=== PATIENT | female | born 1960 | race Caucasian/White ===

== ENCOUNTER 2020-10-24 12:22 | Inpatient (IN) | payer MEDICAID ==
[2020-10-17 17:04] LABS: BASOPHILS # (AUTO) 0.1 X10'3 (0-0.2); BASOPHILS % (AUTO) 1.1 % (0-1); EOSINOPHILS # (AUTO) 0.2 X10'3 (0-0.9); EOSINOPHILS % (AUTO) 2.1 % (0-6); LYMPHOCYTES # (AUTO) 2.1 X10'3 (1.1-4.8); LYMPHOCYTES % (AUTO) 27.2 % (21-51); MEAN CORPUSCULAR HEMOGLOBIN 32.4 PG (27.0-31.0); MEAN CORPUSCULAR HGB CONC 34.2 g/dL (33.0-36.5); MEAN CORPUSCULAR VOLUME 94.9 FL (78-98); MEAN PLATELET VOLUME 8.6 FL (7.4-10.4); MONOCYTES # (AUTO) 0.7 X10'3 (0-0.9); MONOCYTES % (AUTO) 8.5 % (2-12); NEUTROPHILS # (AUTO) 4.7 X10'3 (1.8-7.7); NEUTROPHILS % (AUTO) 61.1 % (42-75); PRE OP HEMATOCRIT 44.8 % (35.0-45.0); PRE OP HEMOGLOBIN 15.3 g/dL (12.0-16.0); PRE OP PLATELET COUNT 284 X10'3 (140-440); RED BLOOD COUNT 4.72 X10'6 (4.20-5.60); RED CELL DISTRIBUTION WIDTH 13.3 % (11.5-14.5)
[2020-10-17 17:12] LABS: ALBUMIN 3.9 G/DL (3.4-5.0); ALBUMIN/GLOBULIN RATIO 1.2 (1.1-1.5); ALKALINE PHOSPHATASE 121 IU/L (46-116); BLOOD UREA NITROGEN 14 MG/DL (7-18); BUN/CREATININE RATIO 14.6 (6.6-38.0); CALCIUM 8.7 MG/DL (8.5-10.1); CHLORIDE 108 MMOL/L (99-107); CREATININE 0.96 MG/DL (0.40-0.90); PRE OP ALT 39 U/L (30-65); PRE OP ANION GAP 8 (8-16); PRE OP AST 20 U/L (10-37); PRE OP BILIRUB, TOTAL 0.3 MG/DL (0.0-1.0); PRE OP GLUCOSE 103 MG/DL (70-104); PRE OP POTASSIUM 4.1 MMOL/L (3.4-5.1); PRE OP SODIUM 144 MMOL/L (135-145); TOTAL CARBON DIOXIDE 27.7 MMOL/L (24-32); TOTAL PROTEIN 7.2 G/DL (6.4-8.2); eGFR 59 ML/MIN
[2020-10-24] VITALS (16 sets, daily range): BP systolic 111–149; BP diastolic 66–98
[~2020-10-24] VITALS: Ht 170.2 cm; Wt 96.4 kg
[~2020-10-24 12:22] MED LIST: ATOR40TA72 PO; CAL MAG ZINC; EVOL140P3 SQ; EZET10TA48 PO; LISI-604 PO; OMEP-50 PO; TOLT4CAP14 PO; TOPI25TA49 PO; TURM500C4 PO; clindamycin-Cleocin 900mg/D5W 50 ML IV ONE; famotidine 20mg tablet PO ONE; ringers solution, lacted 1,000 ML IV SCH; tranexamic acid 650mg tablet PO ONE; vancomycin 1,500 MG in NS 300ml IV soln IV ONE
[2020-10-24] MEDS ORDERED: LIDOcaine 1% (10mg/ml) 2ml vial ONE (12:56)
[2020-10-24] MEDS ORDERED: ASPI-612 PO (13:29)
[2020-10-24] MEDS ORDERED: tranexamic acid 650mg tablet PO ONE (13:50)
--- NOTE | 2020-10-24 14:09 | NUR ---
ONE OF THE THREE TRANEXAMIC ACID SCANNED WAS FOUND TO BE CRUSHED WHEN OPENED. PHARMACY SENT ANOTHER ONE. PT RECEIVED 1950MG PO ORDERED
[2020-10-24] MEDS ORDERED: ceFAZolin 2gm in dextrose, iso 100 ML IV ONE (16:30)
[2020-10-24] MEDS ORDERED: MIDAZolam 5mg/5ml vial ONE (16:57)
[2020-10-24] MEDS ORDERED: fentaNYL/PF 50MCG/1 ML 2ML syringe ONE (16:57)
[2020-10-24] MEDS ORDERED: propofol inj 20 ML IV ONE (16:58)
[2020-10-24] MEDS ORDERED: ROPIVAcaine 0.5% (5mg/ml) 30ml vial ONE ×2 (17:00→17:09)
[2020-10-24] MEDS ORDERED: ketorolac trometh. 30mg/ml inj. ONE (17:09)
[2020-10-24] MEDS ORDERED: ondansetron/PF 4mg/2ml inj IV PRN ×2 (17:15→18:15)
[2020-10-24] MEDS ORDERED: HYDROmorphone 1 mg/ml syringe IV PRN (17:15)
[2020-10-24] MEDS ORDERED: potassium cl 20mEq in 1/2 NS 1,000 ML IV SCH (17:15)
[2020-10-24] MEDS ORDERED: bisacodyl 10mg suppository rectal RC PRN (17:15)
[2020-10-24] MEDS ORDERED: oxyCODONE IR 5mg (immed. release) tablet PO PRN ×2 (17:15)
[2020-10-24] MEDS ORDERED: diphenhydrAMINE 25mg capsule PO PRN ×2 (17:15)
[2020-10-24] MEDS ORDERED: HYDROmorphone inj. 0.5 MG/0.5 ML DISP.SYRIN IV PRN (17:15)
[2020-10-24] MEDS ORDERED: acetaminophen 325mg tablet PO PRN (17:15)
[2020-10-24] MEDS ORDERED: magnesium hydroxide 30ml (MOM) UD suspension PO PRN (17:15)
[2020-10-24] MEDS ORDERED: morphine 2 MG/ML inj. syringe IV PRN (18:15)
[2020-10-24] MEDS ORDERED: ringers solution, lacted 1,000 ML IV SCH (18:15)
[2020-10-24] MEDS ORDERED: ROPIVAcaine 0.2%/PF PUMP/bolus 550 ML INTERSCALE SCH (18:15)
[2020-10-24] MEDS ORDERED: proCHLORperazine 10 MG/2 ml inj IV PRN (18:15)
[2020-10-24] MEDS ORDERED: morphine 4 MG/ML inj SYRINge IV PRN (18:15)
[2020-10-24] MEDS ORDERED: ROPIVAcaine 0.2% (10 MG/5 ML) BOLUS INJECTION INTERSCALE PRN (18:15)
[2020-10-24] MEDS ORDERED: meperidine/PF 25mg/ml syringe IV PRN ×3 (18:15)
--- NOTE | 2020-10-24 18:56 | NUR ---
Received from OR via , accompanied by Anesthesiologist DR SALAZAR and report given by Anesthesiolgist. AWAKENS TO VOICE. VITALS STABLE. DRESSING DI. GURPREET PAIN. RUE IN SLING. FINGERS WARM AND PINK.
--- NOTE | 2020-10-24 19:46 | NUR ---
Report called to receiving nurse. Transferred via BED Belongings . Special Issues communicated to receiving nurse. AWAKE AND ORIENTED. VITALS STABLE. DRESSINGS DI. GURPREET PAIN. TO SURGICAL RM 359B AT THIS TIME.
[2020-10-24] MEDS ORDERED: vancomycin/NS 1 GM ADD-VANTAGE 250 ML IV SCH (20:00)
[2020-10-24] MEDS ORDERED: oxybutynin 5mg tablet PO SCH (21:00)
[2020-10-24] MEDS ORDERED: sennosides 8.6mg tablet PO SCH (21:00)
[2020-10-24] MEDS ORDERED: pantoprazole 40mg Tablet.DR PO SCH (21:00)
[2020-10-24] MEDS ORDERED: ezetimibe 10mg tablet PO SCH (21:00)
[2020-10-24] MEDS ORDERED: atorvastatin 20mg tablet PO SCH (21:00)
[2020-10-24] MEDS ORDERED: lisinopril 5mg tablet PO SCH (21:00)
[2020-10-24] MEDS: acetaminophen 325mg tablet PO SCH (21:13)
--- NOTE | 2020-10-24 22:08 | NUR ---
RECIEVED PATIENT FROM OR IN STABLE CONDITION INTO ROOM 359A AND ASSUMED PATIENT CARE
[2020-10-25] VITALS: BP 107/75
[2020-10-25] MEDS: ceFAZolin/D5W- 1GM premix 50 ML IV SCH ×2 (02:05→09:20)
[2020-10-25] MEDS: acetaminophen 325mg tablet PO SCH ×2 (02:05→09:23)
[2020-10-25 06:00] VITALS: BP 137/97
[2020-10-25 06:05] LABS: BASOPHILS % (AUTO) 0 % (0-1); EOSINOPHILS % (AUTO) 0 % (0-6); HEMATOCRIT 41.9 % (35.0-45.0); HEMOGLOBIN 14.2 g/dl (12.0-16.0); LYMPHOCYTES # (AUTO) 0.6 X10'3 (1.1-4.8); LYMPHOCYTES % (AUTO) 4.6 % (21-51); MEAN CORPUSCULAR HEMOGLOBIN 31.7 PG (27.0-31.0); MEAN CORPUSCULAR HGB CONC 33.8 g/dL (33.0-36.5); MEAN CORPUSCULAR VOLUME 93.7 FL (78-98); MEAN PLATELET VOLUME 9.1 FL (7.4-10.4); MONOCYTES # (AUTO) 0.5 X10'3 (0-0.9); MONOCYTES % (AUTO) 3.8 % (2-12); NEUTROPHILS # (AUTO) 12.7 X10'3 (1.8-7.7); NEUTROPHILS % (AUTO) 91.6 % (42-75); PLATELET COUNT 240 X10'3 (140-440); RED BLOOD COUNT 4.47 X10'6 (4.20-5.60); RED CELL DISTRIBUTION WIDTH 13.5 % (11.5-14.5); WHITE BLOOD COUNT 13.9 X10'3 (4.5-11.0)
[2020-10-25 06:08] LABS: ANION GAP 12 (8-16); CHLORIDE 106 MMOL/L (99-107); POTASSIUM 4.5 MMOL/L (3.5-5.1); SODIUM 140 MMOL/L (135-145)
[2020-10-25] MEDS ORDERED: topiramate 25mg tablet PO SCH (08:00)
[2020-10-25] MEDS ORDERED: aspirin 325mg tablet PO SCH (08:30)
[2020-10-25] MEDS ORDERED: ASPI-1 PO (10:25)
[2020-10-26] MEDS ORDERED: acetaminophen 325mg tablet PO PRN (17:15)
[2020-10-28] MEDS ORDERED: EVOLOCUMAB SQ SCH (09:00)
== END 2020-10-25 11:25 | disposition home or self-care (01) | DRG 315 ==
LOC: PAS IN 12:22 → UNDOADMIN 12:22 → EDSTATUS 15:45 → PAS IN 17:15 → SUR 3N 20:10 → PAS IN 20:10
PROVIDERS: ADMIT Orthopaedic Surgery; ATTEND Orthopaedic Surgery
PROC: 0LS30ZZ Reposition Right Upper Arm Tendon, Open Approach (ICD-10-PCS; 2020-10-24)
PROC: 0RRJ00Z Replacement of Right Shoulder Joint with Reverse Ball and Socket Synthetic Substitute, Open Approach (ICD-10-PCS; principal; 2020-10-24 16:58)
DX: M19.011 Primary osteoarthritis, right shoulder (principal); M75.121 Complete rotator cuff tear or rupture of right shoulder, not specified as traumatic; M75.21 Bicipital tendinitis, right shoulder
CPT/HCPCS: 36415; 80051; 80053; 82948; 85025; 87081; 87635; 97110; 97116; 97161; 97530; A4215; A4565; A4618; A7000; C1713; C1776; G0378; J0690; J1885; J2001; J2250; J2704; J2795; J3010; J3370; J3480; J3490; J7040; J7120